=== PATIENT | male | born 1975 | race Caucasian/White ===

== ENCOUNTER 2018-03-15 10:23 | Emergency (ER) | payer MEDICAID ==
[~2018-03-15] VITALS: Ht 190.5 cm; Wt 84.7 kg
[2018-03-15 10:35] VITALS: BP 132/93
== END 2018-03-15 11:33 | disposition home or self-care (01) ==
LOC: ER 10:24
DX: K40.90 Unilateral inguinal hernia, without obstruction or gangrene, not specified as recurrent (principal); F17.200 Nicotine dependence, unspecified, uncomplicated; F12.90 Cannabis use, unspecified, uncomplicated; Z88.1 Allergy status to other antibiotic agents
CPT/HCPCS: 99281